=== PATIENT | female | born 1975 | race Caucasian/White ===

== ENCOUNTER 2016-08-01 16:27 | Observation (INO) | payer SELFPAY ==
--- NOTE | ~2016-08-01 | DS ---
Unit #: [id number] #: [id number] Patient: JUN MCKEON [id number] [address] [place], [place] [address] [id number] I MR#: [id number] NAME: JUN MCKEON. ROOM: 216 Age: 41 Sex: F Admission Date: 08/01/2016 : 1975 Discharge Date: 08/05/2016 Attending Physician: Tong Bermudez M.D. Primary Care Physician: Cristal Stewart M.D. DISCHARGE SUMMARY DIAGNOSIS ON ADMISSION Left facial cellulitis abscess. DIAGNOSES ON DISCHARGE 1. Left buccal swelling, probable hematoma versus abscess. 2. Left facial cellulitis. 3. Probable (1) . 4. Tobacco abuse. 5. History of ovarian cancer. 6. History of Brody's angina. 7. Migraine headaches. CONSULTATION 1. Dr. Schroeder - ID consultation. 2. Dr. Becerril - Surgery consultation. LABS AND PROCEDURES DONE 1. MRSA of skin was negative. 2. CT scan of maxillofacial revealed small subcutaneous fluid density inside the left lower lip which was concerning for possible subcutaneous (2) abscess. There could possibility of evolving hematoma. The patient had several small cervical lymph nodes enlarged which favored to be reactive in nature. 3. Blood culture did not reveal any growth so far. 4. Lactic acid level was 0.7 on repeat. 5. The patient's creatinine is 0.7, sodium 139, potassium is 4.0. 6. WBC is 5.2, hemoglobin is 11.6, platelet count is 198. HOSPITAL COURSE 41-year-old female who was admitted to the hospital with facial swelling. Details are as per admission H and P. The patient was treated with IV antibiotics and was seen by general surgery who recommended to have ENT consultation but, unfortunately, ENT was unable to see patient in-house. Patient was seen by Dr. Schroeder in consultation, treated with antibiotics and is doing much better. She wants to go home today. Today, patient is comfortable, is not in any acute distress, wants to go home. On physical examination, vital signs reveal a temperature of 98.1, pulse is 66/minute, respiratory rate is 16/minute, blood pressure is 121/59. HEENT - no conjunctival congestion. The patient has slight facial swelling around the left lip and around that. Has a small left angular ulcer and minimal tenderness. RESPIRATORY examination revealed breath Unit #: [id number] #: [id number] Patient: HITES,JUN K sounds equal bilaterally. No wheezes or crackles. HEART is regular rate and rhythm. S1, S2. ABDOMEN is soft, nontender. Bowel sounds are present in all four quadrants. SKIN is warm and dry. NEUROLOGICAL - strength is 5 out of 5 bilaterally. RECOMMENDATIONS ON DISCHARGE The patient is stable. ACTIVITY As tolerated. MEDICATIONS 1. Tylenol 650 mg p.o. q.6 hours p.r.n. 2. Clindamycin 450 mg p.o. t.i.d. for one week. 3. Floranex, one capsule p.o. b.i.d. for one week. FOLLOWUP Patient is advised to follow up with primary care physician in one week. The patient is also advised to follow up with Dr. Maddox in ENT. I called and discussed plan with Dr. Schroeder. The patient was also encouraged to quit smoking. The patient was advised to call primary care physician or go to ER if her condition changes. Dictated by... Lupe Gasca/dao TD: 08/05/2016 12:05 JOB #: [id number] DISCHARGE SUMMARY Page 1 of 1 X Tong Bermudez MD X DISCHARGE SUMMARY
--- NOTE | ~2016-08-01 | CT99 ---
[facility] A Service of [facility] & [facility] RADIOLOGY TEXT RESULTS PATIENT: JUN MCKEON LOCATION: [facility] 216-01 : 73 UNIT #: [id number] AGE: [address]: Lucy Gandhi MD SEX: F ORDER DR: [id number] [facility] [address] [facility]. [place], [place] [address] [id number] I MR#: [id number] Acc #: [id number] NAME: JUN MCKEON. : 1975 SEX: F STUDY DATE/TIME: 08/01/2016 17:11 UNIT: CEDOF ROOM: 72177 STUDY DESCRIPTION: CT Maxillofacial Area W Cont Attending Physician: Chasity Martines M.D. Ordering Physician: Rachel Mcdaniel P.A.-C. Primary Care Physician: Cristal Stewart M.D. MEDICAL IMAGING REPORT This report is preliminary unless electronic signature is present EXAM CT maxillofacial area with contrast HISTORY Hit left side of jaw 3 days, swollen, busted lip on the left side. TECHNIQUE CT of the face performed with intravenous administration 100 mL Isovue-370. Sagittal and coronal reconstructions performed. Bone and soft tissue windows reviewed. This CT exam was performed with one or more of the following radiation dose reduction techniques: automatic exposure control, adjustment of mA and/or kV according to patient size, and iterative reconstruction. FINDINGS The visualized portions of brain are unremarkable. Intraorbital soft tissues unremarkable. Nasopharyngeal, oropharyngeal, pharyngeal mucosal, retropharyngeal spaces, larynx and visualized subglottic airway unremarkable. Thyroid, submandibular, parotid glands unremarkable. The intraorbital soft tissues are unremarkable. The superficial facial soft tissues of the right face are remarkable. On the left, there is subcutaneous fat stranding and haziness in the inferior pre-maxillary soft tissues extending into the pre-mandibular soft tissues. In the left lower lip laterally, there is an ill-defined area of subcutaneous fluid density, heterogeneous in density, measuring about 1 cm x 1.7 cm x 8 mm. Its appearance is concerning for possible subcutaneous abscess. This may be palpable on physical examination. The possibility of evolving hematoma at this location could also be considered. There is some overlying soft tissue irregularity suggested which may reflect some degree of cutaneous laceration. There appears to be generalized swelling of the lower lip, more pronounced to the left of midline. Inflammatory change extends into STS. [facility] A Service of [facility] & [facility] RADIOLOGY TEXT RESULTS PATIENT: JUN MCKEON LOCATION: [facility] 216-01 : [birth year] UNIT #: [id number] AGE: [address]: Lucy Gandhi MD SEX: F ORDER DR: the left submandibular region. There are multiple small cervical lymph nodes, more numerous on the left than the right, largest in the jugulodigastric chain measuring about 1.1 cm in short axis and favored to be reactive in nature and related to the left side facial findings. No subcutaneous air or radiodense foreign body. Patient is edentulous. Bones of calvaria intact. The visualized paranasal sinuses and mastoid air cells notable for air-fluid levels in right mastoid air cells with opacification of some mastoid air cells. Appearance is consistent with acute right mastoiditis. The bones of calvaria are intact. Nasal bones intact. Nasal septum in midline. Ostiomeatal complex is patent. Zygomas, zygomatic arches, pterygoid plates, maxillary sinus jara intact. The mandible is intact. IMPRESSION 1. See complete dictation above for full details. Soft tissue swelling of the lower lip, more pronounced to the left of midline. In the lateral aspect of the left lower lip, there appears to be subcutaneous heterogeneous low density, presumed fluid collection, measuring 1 cm x 1.7 cm x 8 mm. Given the patient's history, this could reflect a small area of subcutaneous/submucosal abscess formation. Components of evolving hematoma could be considered in the context of acute trauma. Inflammatory change extends cephalad into the pre-maxillary soft tissues on the left without associated fluid collection. Inflammatory change extends caudad into the left submandibular region, again without additional subcutaneous fluid collection. No subcutaneous air or radiodense foreign body. 2. Mild reactive adenopathy in the left neck and submandibular region. 3. No fracture. 4. Opacification of some right mastoid air cells with air-fluid levels. Findings indicative of acute right mastoiditis. Consider ENT consultation and followup for management. 5. See remainder of incidental findings in body of report above. 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 This is a normal congenital variant. It is not felt related to the patient's acute presentation. Dictated by... Alexi Luna M.D. THIS IS AN ELECTRONICALLY VERIFIED REPORT Alexi Lnua M.D. at 08/02/2016 2:14 PM SAEID/love TD: 08/01/2016 21:31 JOB #: [id number] MEDICAL IMAGING REPORT [facility] A Service of [facility] & [facility] RADIOLOGY TEXT RESULTS PATIENT: JUN MCKEON LOCATION: [place] [address] : [birth year] UNIT #: [id number] AGE: [address]: Lucy Gandhi MD SEX: F ORDER DR: Page 1 of 1 COPY
--- NOTE | ~2016-08-01 | HP ---
Unit #: [id number] #: [id number] Patient: JUN MCKEON [id number] [address] [place], [place] [address] [id number] I MR#: [id number] NAME: JUN MCKEON. ROOM: 85396 Age: 41 Sex: F Admission Date: 08/01/2016 : 1975 Attending Physician: Chasity Martines M.D. Primary Care Physician: Cristal Stewart M.D. HISTORY AND PHYSICAL CHIEF COMPLAINT Facial complaint. HISTORY OF PRESENT ILLNESS The patient is a 41-year-old female with history of ovarian cancer, migraine headaches and seasonal allergy brought to the emergency room status post hit in jaw by mop bucket at work. The patient stated that the patient has been having complaint of left side of jaw swelling and pain for a few days and associated with swelling of the lip. The patient had a CT of the face that showed the left facial cellulitis and then concerning for subcutaneous gas with abscess at the lower half of the lip and is being admitted for that reason. The patient has a history of MRSA in the past and was seen by [facility] in the past. Denies any fever, chills, or trouble swallowing. PAST MEDICAL HISTORY 1. History of Brody angina. 2. Ovarian cancer. 3. Migraine headaches. 4. Seasonal allergies. PAST SURGICAL HISTORY 1. Tubal ligation. 2. Ankle fracture. 3. Right salpingo-oophorectomy. 4. Partial hysterectomy. 5. Oral surgery. HOME MEDICATIONS Tylenol. ALLERGIES Penicillin. SOCIAL HISTORY The patient lives with her in-laws. She smokes one-half pack of cigarettes per day. Denies alcohol or any illicit drug abuse. FAMILY HISTORY Notable for mother having ovarian cancer. REVIEW OF SYSTEMS A 14-point review of systems performed and only pertinent positive findings as described above, remaining are negative. Unit #: [id number] #: [id number] Patient: JUN MCKEON PHYSICAL EXAMINATION VITAL SIGNS: Temperature 98.1, pulse 94, respiratory rate 16, blood pressure 131/65, saturating 100% at room air. GENERAL: Patient is sitting on the bed not in acute distress. HEENT: Atraumatic, normocephalic. Pupils equal, round, and reactive to light and accommodation. Patient has swelling of the left mandibular region with tenderness and swelling. The patient also has swelling of the left upper lip with corner of the left upper lip and the lower lip with the swelling. LUNGS: Clear to auscultation bilaterally. HEART: Regular rate and rhythm. ABDOMEN: Soft, positive bowel sounds. EXTREMITIES: No cyanosis, no clubbing. NEUROLOGIC: Alert, awake, oriented. No gross focal motor deficit. DIAGNOSTIC STUDIES LABORATORY: Glucose 134, BUN 7, creatinine 0.8, sodium 138, potassium 3.4, chloride 105, bicarb 24, calcium 9.2. WBC 11.3, hemoglobin 12.6, hematocrit 38.5, platelets 195. IMAGING: CT of the face shows swelling of the left facial and subcutaneous gas in the lip margin and positive for acute mastoiditis. ASSESSMENT AND PLAN 1. Status post trauma secondary to the mop bucket. 2. Left face cellulitis. 3. Left lip abscess. PLAN 1. Admit patient as observation with telemetry with med-surg. 2. IV antibiotics with clindamycin. 3. Patient will have a consult with [facility], Dr. Sullivan has been notified and will perform I and D if needed. 4. Continue with pain control with morphine. 5. Replace potassium. 6. Repeat the labs again in the morning. 7. Check for MRSA. Keep the patient in contact isolation. 8. Further recommendations will follow. Dictated by Lupe Hunter/corazon TD: 08/01/2016 21:16 JOB #: [id number] Unit #: [id number] #: [id number] Patient: JUN MCKEON HISTORY AND PHYSICAL Page 1 of 1 X X HISTORY AND PHYSICAL
[2016-08-01 16:18] LABS: BASOPHIL# 0.1 X10e3 (0-0.3); BASOPHIL% 0.7 % (0-2.5); EOSINOPHIL# 0.2 X10e3 (0-0.7); EOSINOPHIL% 1.7 % (0.0-7.0); HEMATOCRIT 38.5 % (35.0-45.0); HEMOGLOBIN 12.6 gm/dL (12.0-16.0); LYMPHOCYTE# 2.1 X10e3 (1.0-3.5); LYMPHOCYTE% 18.2 % (17.0-45.0); MEAN CELL VOLUME 98.7 FL (83-96); MEAN CORPUSCULAR HEMOGLOBIN 32.3 PG (28-34); MEAN CORPUSCULAR HGB CONC 32.7 g/dL (30-36); MEAN PLATELET VOLUME 9.5 FL (6.5-11.5); MONOCYTE# 0.6 X10e3 (0-1.0); MONOCYTE% 5.8 % (3.0-12.0); NEUTROPHIL# 8.3 X10e3 (1.5-7.1); NEUTROPHIL% 73.6 % (40-75); PLATELET COUNT 195 X10e3 (140-420); RED CELL DISTRIBUTION WIDTH 14.1 % (11.0-15.5); WHITE BLOOD COUNT 11.3 X10e3 (4.0-10.5)
[2016-08-01 16:21] LABS: DIFF IND NO
[~2016-08-01 16:27] MED LIST: ACETAMINOPHEN PO; ALLEGRA ALLERG180 MG PO; AMLODIPINE BESYL5 MG PO; BACTRIM DS TABL1 TA1 PO; BUPAP; CLEOCIN HCL300 M1 PO; CLEOCIN PO; CLINDAMYCIN HC300 MG PO; CYANOCOBALAM1000 MCG PO; CYCLOBENZAPRINE5 MG PO; DAKIN'S MODIF1000 ML EXT; LIPITOR20 MG PO; LORTAB; LORTAB 10-5001 EACH PO; LORTAB 5/500 TA1 TA1 PO; NAPROXEN PO; NITROSTAT0.4 MG SL; NO MEDICATIONS; OMEPRAZOLE20 M1 PO; PERCOCET 10/3251 TAB PO; PERCOCET 7.5-31 EACH PO; PHENERGAN PR; SULFAMETHOXAZO1 EACH PO; TYLENOL PM PO; TYLENOL325 M1 PO; VICODIN 5/1 TAB 5/50 PO
[2016-08-01 16:43] LABS: BUN/CREATININE RATIO 8.75; CALCIUM SERUM 9.2 mg/dL (8.4-10.2); CREATININE SERUM 0.8 mg/dL (0.6-1.4); POTASSIUM 3.4 mmol/L (3.5-5.1)
[2016-08-02 03:32] LABS: BASOPHIL# 0.1 X10e3 (0-0.3); BASOPHIL% 0.8 % (0-2.5); DIFF IND NO; EOSINOPHIL# 0.3 X10e3 (0-0.7); EOSINOPHIL% 3.3 % (0.0-7.0); HEMATOCRIT 35.3 % (35.0-45.0); HEMOGLOBIN 11.6 gm/dL (12.0-16.0); LYMPHOCYTE# 2.4 X10e3 (1.0-3.5); LYMPHOCYTE% 27.3 % (17.0-45.0); MEAN CORPUSCULAR HEMOGLOBIN 32.7 PG (28-34); MEAN PLATELET VOLUME 9.4 FL (6.5-11.5); MONOCYTE# 0.5 X10e3 (0-1.0); MONOCYTE% 5.7 % (3.0-12.0); NEUTROPHIL# 5.5 X10e3 (1.5-7.1); NEUTROPHIL% 62.9 % (40-75); PLATELET COUNT 174 X10e3 (140-420); RED BLOOD COUNT 3.56 X10e (3.90-5.30); RED CELL DISTRIBUTION WIDTH 13.9 % (11.0-15.5); WHITE BLOOD COUNT 8.8 X10e3 (4.0-10.5)
[2016-08-02 03:58] LABS: BUN/CREATININE RATIO 8.57; CALCIUM SERUM 8.8 mg/dL (8.4-10.2); CREATININE SERUM 0.7 mg/dL (0.6-1.4); GLOM FILT RATE Estimated 106.9 mL/min (>60); POTASSIUM 4.2 mmol/L (3.5-5.1)
[2016-08-02 06:03] LABS: HEMOGLOBIN 11.8 gm/dL (12.0-16.0); MEAN CELL VOLUME 99.6 FL (83-96); MEAN CORPUSCULAR HEMOGLOBIN 32.7 PG (28-34); MEAN CORPUSCULAR HGB CONC 32.9 g/dL (30-36); MEAN PLATELET VOLUME 9.3 FL (6.5-11.5); RED BLOOD COUNT 3.62 X10e (3.90-5.30); RED CELL DISTRIBUTION WIDTH 13.6 % (11.0-15.5); WHITE BLOOD COUNT 8.2 X10e3 (4.0-10.5)
[2016-08-02 06:52] LABS: BUN/CREATININE RATIO 8.57; CALCIUM SERUM 8.7 mg/dL (8.4-10.2); CREATININE SERUM 0.7 mg/dL (0.6-1.4); GLOM FILT RATE Estimated 106.9 mL/min (>60)
[2016-08-03 06:15] LABS: HEMATOCRIT 35.3 % (35.0-45.0); HEMOGLOBIN 11.8 gm/dL (12.0-16.0); MEAN CELL VOLUME 99.1 FL (83-96); MEAN CORPUSCULAR HEMOGLOBIN 33.1 PG (28-34); MEAN CORPUSCULAR HGB CONC 33.4 g/dL (30-36); MEAN PLATELET VOLUME 9.4 FL (6.5-11.5); RED BLOOD COUNT 3.56 X10e (3.90-5.30); RED CELL DISTRIBUTION WIDTH 13.8 % (11.0-15.5); WHITE BLOOD COUNT 7.2 X10e3 (4.0-10.5)
[2016-08-03 07:40] LABS: ALBUMIN SERUM 3.7 g/dL (3.5-5.0); BILIRUBIN,TOTAL 0.3 mg/dL (0.2-2.0); CALCIUM SERUM 8.9 mg/dL (8.4-10.2); CREATININE SERUM 0.7 mg/dL (0.6-1.4); GLOM FILT RATE Estimated 106.9 mL/min (>60); POTASSIUM 3.9 mmol/L (3.5-5.1); PROTEIN TOTAL SERUM 7.2 g/dL (6.0-8.3)
[2016-08-05 06:55] LABS: HEMATOCRIT 34.8 % (35.0-45.0); HEMOGLOBIN 11.6 gm/dL (12.0-16.0); MEAN CELL VOLUME 99.5 FL (83-96); MEAN CORPUSCULAR HEMOGLOBIN 33.2 PG (28-34); MEAN CORPUSCULAR HGB CONC 33.3 g/dL (30-36); MEAN PLATELET VOLUME 9.7 FL (6.5-11.5); RED BLOOD COUNT 3.5 X10e (3.90-5.30); RED CELL DISTRIBUTION WIDTH 13.4 % (11.0-15.5); WHITE BLOOD COUNT 5.2 X10e3 (4.0-10.5)
[2016-08-05 07:22] LABS: CALCIUM SERUM 8.9 mg/dL (8.4-10.2); CREATININE SERUM 0.7 mg/dL (0.6-1.4); GLOM FILT RATE Estimated 106.9 mL/min (>60)
[2016-08-05] MEDS ORDERED: CLEOCIN PO (12:18)
[2016-08-05] MEDS ORDERED: CLEOCIN HCL150 MG PO (12:20)
[2016-08-05] MEDS ORDERED: FLORANEX GRANU1 EACH PO (12:20)
== END 2016-08-05 15:20 | disposition home or self-care (01) | DRG 603 ==
LOC: CED 16:27 → CEDOF 19:34 → C2A 08-02 04:00
PROVIDERS: Internal Medicine; Physician Assistant
DX: L03.211 Cellulitis of face (principal); K13.0 Diseases of lips; S09.93XA Unspecified injury of face, initial encounter; W22.8XXA Striking against or struck by other objects, initial encounter; R22.0 Localized swelling, mass and lump, head; R59.0 Localized enlarged lymph nodes; Z88.0 Allergy status to penicillin; Z86.14 Personal history of Methicillin resistant Staphylococcus aureus infection; F17.210 Nicotine dependence, cigarettes, uncomplicated; Z80.41 Family history of malignant neoplasm of ovary
CPT/HCPCS: 36415; 70487; 80048; 80053; 80202; 83605; 85025; 85027; 87040; 87070; 94760; 96365; 96366; 96372; 96375; 96376; 99285; G0378; J1335; J1650; J1885; J2270; J2405; J3370; Q9967